=== PATIENT | male | born 1990 | race Caucasian/White ===

== ENCOUNTER 2017-08-05 08:50 | Outpatient (RCR) | payer OTHER ==
[~2017-08-05 08:50] MED LIST: ALLEGRA-D 24HOU1 T24 PO
== END 2017-09-09 10:38 | disposition home or self-care (01) ==
LOC: WSOH 08:50
DX: L03.116 Cellulitis of left lower limb (principal); W60.XXXA Contact with nonvenomous plant thorns and spines and sharp leaves, initial encounter; Y99.0 Civilian activity done for income or pay